=== PATIENT | male | born 1985 | race Caucasian/White ===

== ENCOUNTER 2022-08-03 09:07 | Emergency (ER) | payer OTHER, SELFPAY ==
[2022-08-03] VITALS (12 sets, daily range): BP systolic 121–156; BP diastolic 73–97; PULSE 60–77; RESP 16; TEMP 36.2; O2SAT 92–99; BMI 25.8
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
--- NOTE | 2022-08-03 09:31 | CRLHL7_ITS ---
For Patients: As a result of the Cures Act, medical imaging exams and procedure reports are released immediately into your electronic medical record. You may view this report before your referring provider. If you have questions, please contact your health care provider. Indication: knee injury Technique: Left knee 3 views Comparison: None Findings: Bones: Alignment is normal. No fractures or bone lesions. Joint spaces: No joint effusion. Joint spaces are well maintained. No degenerative changes. Soft tissues: Unremarkable. Impression: No sign of acute fracture. Dictated by Hussein Márquez MD @ 08/03/2022 10:22:21 AM (Electronically Signed)
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
== END 2022-08-03 11:23 | disposition home or self-care (01) ==
PROVIDERS: Emergency Provider Internal Medicine
DX: M54.2 Cervicalgia (principal); M25.552 Pain in left hip
CPT/HCPCS: 70450; 71250; 72125; 73562; 74176; 99283; 99284; 99291